=== PATIENT | female | born 1980 | race American Indian/Alaskan Native ===

== ENCOUNTER 2016-09-14 19:28 | Emergency (ER) | payer MEDICARE ==
[2016-09-14 21:59] LABS: Basophils % (Auto) 1.1 % (0.0-1.8); Eosinophils % (Auto) 1.2 % (0.0-4.3); Hematocrit 32.8 % (30.3-42.9); Hemoglobin 10.7 gm/dl (10.1-14.3); Mean Corpuscular HGB Conc 33 % (30-34); Mean Corpuscular Hemoglobin 27 pg (28-32); Mean Corpuscular Volume 83 fl (79-97); Platelet Count 315 K/mm3 (140-440); Red Blood Count 3.97 M/mm3 (3.65-5.03); Red Cell Distribution Width 14.4 % (13.2-15.2); White Blood Count 6.3 K/mm3 (4.5-11.0)
[2016-09-14 22:11] LABS: Alanine Aminotransferase 9 units/L (7-56); Albumin 3.6 g/dL (3.9-5); Albumin/Globulin Ratio 1.1 %; Alkaline Phosphatase 86 units/L (35-129); Anion Gap 15 mmol/L; BUN/Creatinine Ratio 12.22; Bilirubin,Total < 0.20 mg/dL (0.1-1.2); Blood Urea Nitrogen 11 mg/dL (7-17); Calcium 8.5 mg/dL (8.4-10.2); Carbon Dioxide 25 mmol/L (22-30); Chloride 104.2 mmol/L (98-107); Glucose 98 mg/dL (65-100); Potassium 4.5 mmol/L (3.6-5.0); Sodium 140 mmol/L (137-145); Total Protein 6.9 g/dL (6.3-8.2)
[2016-09-14] MEDS ORDERED: ATIVAN ONE (22:35)
[2016-09-14] MEDS ORDERED: ATIVAN IV ONE (23:05)
--- NOTE | 2016-09-14 23:12 | Emergency Department Report ---
HPI - General Chief Complaint: Seizure Time Seen by Provider: 09/14/16 23:04 - HPI HPI: Room 26 The patient is a 36-year-old female presenting with a chief complaint of seizure. The patient has history of seizures and mental retardation and reportedly had 2 seizures today. The timing of the first seizure is uncertain with the patient's second seizure occurred at approximately 18:00. The mother states during the second seizure the patient sat down quickly to the ground and began foaming at her mouth. Mother states the seizure lasted approximately 30 seconds. The patient subsequently was brought to the emergency department where she had a witnessed generalized tonic-clonic seizure. Patient was brought back to room was postictal at the time of the interview. Family states patient was started on clobazam at [facility] approximately one month ago for her seizures. Family states since starting the medication the patient appeared restless dizzy/off balance and exhibited nausea vomiting. The family attempted to take patient to [facility] last week or over the wait was so long and left without being seen. Family states he took the patient off of the clobazam one week ago because of these symptoms. Location: Central nervous system Duration: [see above] Quality: Generalized tonic-clonic Severity: Moderate Modifying factors: [see above] Context: [see above] Mode of transportation: [not driving] ED Past Medical Hx - Past Medical History Hx Seizures: Yes Additional medical history: Mental Retardation - Surgical History Past Surgical History?: No - Family History Family history: no significant - Social History Smoking Status: Never Smoker Substance Use Type: None - Medications Home Medications: Home Medications Medication Instructions Recorded Confirmed Last Taken Type OXcarbazepine 900 mg PO BID 11/08/15 09/14/16 Unknown History Calcium 500 + D Tablet 1 tab PO BID 09/14/16 09/14/16 Unknown History Clobazam 5 mg PO BID 09/14/16 09/14/16 Unknown History Zonisamide 300 mg PO HS 09/14/16 09/14/16 Unknown History Ondansetron [Zofran ODT TAB] 8 mg PO Q8HR #20 tab.rapdis 09/15/16 Unknown Rx ED Review of Systems ROS: Stated complaint: SEIZURE Other details as noted in HPI Comment: Unobtainable due to pts medical conditions Physical Exam - Physical Exam Vital Signs: Vital Signs 09/14/16 09/14/16 20:29 22:50 Temperature 99.3 F Pulse Rate 86 111 H Respiratory 16 20 Rate Blood Pressure 128/85 Blood Pressure 128/85 141/81 [Left] O2 Sat by Pulse 100 95 Oximetry Physical Exam: GENERAL: The patient is well-nourished female lying on stretcher postictal. [] HEENT: Normocephalic. Atraumatic. Patient has moist mucous membranes. NECK: Supple. Trachea midline CHEST/LUNGS: Clear to auscultation. There is no respiratory distress noted. HEART/CARDIOVASCULAR: Regular. There is no tachycardia. There is no gallop rub or murmur. ABDOMEN: Abdomen is soft, nontender. Patient has normal bowel sounds. There is no abdominal distention. SKIN: There is no rash. There is no edema. There is no diaphoresis. NEURO: The patient is postictal and initially combative with nursing as IV was being established MUSCULOSKELETAL: There is no evidence of acute injury. ED Course Vital Signs 09/14/16 09/14/16 20:29 22:50 Temperature 99.3 F Pulse Rate 86 111 H Respiratory 16 20 Rate Blood Pressure 128/85 Blood Pressure 128/85 141/81 [Left] O2 Sat by Pulse 100 95 Oximetry - Reevaluation(s) Reevaluation #1: 09/15/16 01:26 Patient resting comfortably at bedside. Mother states the patient has awakened and is behaving like her normal self ED Medical Decision Making - Lab Data Result diagrams: 09/14/16 21:36 09/14/16 21:36 Laboratory Tests 09/14/16 09/14/16 09/14/16 20:48 21:30 21:36 WBC 6.3 RBC 3.97 Hgb 10.7 Hct 32.8 MCV 83 MCH 27 L MCHC 33 RDW 14.4 Plt Count 315 Lymph % (Auto) 29.3 Jefferson % (Auto) 9.5 H Eos % (Auto) 1.2 Baso % (Auto) 1.1 Lymph # 1.8 Jefferson # 0.6 Eos # 0.1 Baso # 0.1 Seg Neutrophils % 58.9 Seg Neutrophils # 3.7 Sodium Potassium Chloride Carbon Dioxide Anion Gap BUN Creatinine Estimated GFR BUN/Creatinine Ratio Glucose POC Glucose 138 H Calcium Magnesium 2.20 Total Bilirubin AST ALT Alkaline Phosphatase Total Protein Albumin Albumin/Globulin Ratio 09/14/16 21:36 WBC RBC Hgb Hct MCV MCH MCHC RDW Plt Count Lymph % (Auto) Jefferson % (Auto) Eos % (Auto) Baso % (Auto) Lymph # Jefferson # Eos # Baso # Seg Neutrophils % Seg Neutrophils # Sodium 140 Potassium 4.5 Chloride 104.2 Carbon Dioxide 25 Anion Gap 15 BUN 11 Creatinine 0.9 Estimated GFR > 60 BUN/Creatinine Ratio 12.22 Glucose 98 POC Glucose Calcium 8.5 Magnesium Total Bilirubin < 0.20 AST 14 ALT 9 Alkaline Phosphatase 86 Total Protein 6.9 Albumin 3.6 L Albumin/Globulin Ratio 1.1 - Radiology Data Radiology results: report reviewed (CT head), image reviewed (CT head) CT head (read by radiologist)-normal examination - Differential Diagnosis epilepsy, ICH, intracranial mass Critical care attestation.: If time is entered above; I have spent that time in minutes in the direct care of this critically ill patient, excluding procedure time. ED Disposition Clinical Impression: Seizure, Nausea Disposition: DC-01 TO HOME OR SELFCARE Is pt being admited?: No Does the pt Need Aspirin: No Condition: Stable Instructions: Epilepsy (ED) Additional Instructions: Return to the emergency department immediately should you develop worsening symptoms, fever, inability to tolerate food or liquid or any other concerns. Prescriptions: Ondansetron [Zofran ODT TAB] 8 mg PO Q8HR #20 [email or web address] Referrals: PRIMARY CARE, [Primary Care Provider] - 3-5 Days your neurologist, [facility] [Other] - [facility] Time of Disposition: 01:28
--- NOTE | 2016-09-15 00:52 | Cat Scan Report ---
FINAL REPORT PROCEDURE: CT HEAD/BRAIN WO CON TECHNIQUE: Computerized tomography of the head was performed without contrast material. HISTORY: seizures, dizziness, vomiting COMPARISON: No prior studies are available for comparison. FINDINGS: Skull and scalp: Normal. Paranasal sinuses: Normal. Ventricles and subarachnoid spaces: Normal. Cerebrum: No evidence of hemorrhage, acute infarction or mass . Cerebellum and brainstem: No evidence of hemorrhage, acute infarction or mass. Vasculature: Normal. Comments: None. IMPRESSION: Normal Examination
[2016-09-15 01:30] VITALS: BP 127/85
== END 2016-09-15 02:04 | disposition home or self-care (01) ==
LOC: ED 19:28
DX: R56.9 Unspecified convulsions (principal); R11.2 Nausea with vomiting, unspecified
CPT/HCPCS: 36415; 70450; 80053; 82962; 83735; 85025; 96374; 99284; J2060

== ENCOUNTER 2016-10-28 14:43 | Emergency (ER) | payer MEDICARE ==
[2016-10-28 15:34] VITALS: BP 112/69
--- NOTE | 2016-10-28 15:53 | Emergency Department Report ---
HPI - General Chief Complaint: Seizure - HPI HPI: Room 3 The patient is a 36-year-old female presenting with chief complaint of need for medication refill. Patient has a history of seizures reportedly took her last Zonisamide this morning. Family states they are about to travel to [place] for and is requesting a prescription for the patient's seizure medication before they leave. Family states the patient hasn't had a seizure in "a good little while." Patient is without complaints Location: [see above] Duration: [see above] Quality: [see above] Severity: [see above] Modifying factors: [see above] Context: [see above] Mode of transportation: [not driving] ED Past Medical Hx - Past Medical History Previous Medical History?: Yes Hx Seizures: Yes Additional medical history: Mental Retardation - Surgical History Past Surgical History?: No - Family History Family history: no significant - Social History Smoking Status: Never Smoker Substance Use Type: Prescribed - Medications Home Medications: Home Medications Medication Instructions Recorded Confirmed Last Taken Type OXcarbazepine 900 mg PO BID 11/08/15 09/14/16 Unknown History Calcium 500 + D Tablet 1 tab PO BID 09/14/16 09/14/16 Unknown History Clobazam 5 mg PO BID 09/14/16 09/14/16 Unknown History Ondansetron [Zofran ODT TAB] 8 mg PO Q8HR #20 tab.rapdis 09/15/16 Unknown Rx Zonisamide 100mg 200 mg PO HS #90 10/28/16 Unknown Rx ED Review of Systems ROS: Stated complaint: RX REFILL Other details as noted in HPI Comment: All other systems reviewed and negative Physical Exam - Physical Exam Vital Signs: Vital Signs 10/28/16 10/28/16 14:47 15:33 Temperature 97.9 F 98.4 F Pulse Rate 72 88 Respiratory 20 18 Rate Blood Pressure 128/78 Blood Pressure 112/69 [Left] O2 Sat by Pulse 100 98 Oximetry Physical Exam: GENERAL: The patient is well-nourished female sitting on stretcher not appearing to be in acute distress HEENT: Normocephalic. Atraumatic. Extraocular motions are intact. Patient has moist mucous membranes. NECK: Supple. Trachea midline CHEST/LUNGS: Clear to auscultation. There is no respiratory distress noted. HEART/CARDIOVASCULAR: Regular. There is no tachycardia. There is no gallop rub or murmur. ABDOMEN: Abdomen is soft, nontender. Patient has normal bowel sounds. There is no abdominal distention. SKIN: There is no rash. There is no edema. There is no diaphoresis. NEURO: The patient is awake and alert. The patient is cooperative. MUSCULOSKELETAL: There is no evidence of acute injury. ED Course Vital Signs 10/28/16 10/28/16 14:47 15:33 Temperature 97.9 F 98.4 F Pulse Rate 72 88 Respiratory 20 18 Rate Blood Pressure 128/78 Blood Pressure 112/69 [Left] O2 Sat by Pulse 100 98 Oximetry ED Medical Decision Making - Differential Diagnosis medication refill Critical care attestation.: If time is entered above; I have spent that time in minutes in the direct care of this critically ill patient, excluding procedure time. ED Disposition Clinical Impression: Medication refill, Epilepsy Disposition: DC-01 TO HOME OR SELFCARE Is pt being admited?: No Does the pt Need Aspirin: No Condition: Stable Instructions: Epilepsy (ED) Additional Instructions: Return to the emergency department immediately should you develop worsening symptoms, fever, inability to tolerate food or liquid or any other concerns. Prescriptions: Zonisamide 100mg 200 mg PO HS #90 Referrals: PRIMARY CARE, [Primary Care Provider] - 3-5 Days Time of Disposition: 15:48
== END 2016-10-28 16:17 | disposition home or self-care (01) ==
LOC: ED 14:43
DX: Z76.0 Encounter for issue of repeat prescription (principal); G40.909 Epilepsy, unspecified, not intractable, without status epilepticus
CPT/HCPCS: 82962; 99283